=== PATIENT | female | born 2000 | race Caucasian/White ===

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

== ENCOUNTER 2020-12-24 19:09 | Emergency (ER) | payer SELFPAY ==
[~2020-12-24 19:09] MED LIST changes: +DOCU100C37 PO; +IBUP-1780 PO; +OXYC-556 PO
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
[2020-12-24 21:17] VITALS: BP 128/89
== END 2020-12-24 21:25 | disposition home or self-care (01) ==
LOC: EDUNIT# 19:09 → ER 19:12
DX: S06.0X0A Concussion without loss of consciousness, initial encounter (principal); S01.01XA Laceration without foreign body of scalp, initial encounter; S40.021A Contusion of right upper arm, initial encounter; R40.2410 Glasgow coma scale score 13-15, unspecified time; Y04.2XXA Assault by strike against or bumped into by another person, initial encounter; Y07.01 Husband, perpetrator of maltreatment and neglect
CPT/HCPCS: 70450; 84703